=== PATIENT | male | born 1980 | race Two or more races ===

== ENCOUNTER 2017-11-24 11:41 | Emergency (ER) | payer OTHER | END 2017-11-24 13:51 | disposition home or self-care (01) | LOC: ER 11:41 | DX: S92.355A Nondisplaced fracture of fifth metatarsal bone, left foot, initial encounter for closed fracture (principal); X58.XXXA Exposure to other specified factors, initial encounter; Y93.89 Activity, other specified; Y99.8 Other external cause status; Y92.89 Other specified places as the place of occurrence of the external cause | CPT/HCPCS: 73630; 99284 ==